=== PATIENT | male | born 1955 | race Two or more races ===

== ENCOUNTER 2020-06-28 05:48 | Inpatient (IN) | payer SELFPAY ==
[~2020-06-28] VITALS: Ht 175.3 cm; Wt 78.9 kg
[2020-06-28] VITALS (12 sets, daily range): BP systolic 115–133; BP diastolic 66–92
[~2020-06-28 05:48] MED LIST: CANDESARTAN CIL16 MG PO
[2020-06-28] MEDS ORDERED: ceFAZolin sod 1 GM in NS 55 ML IVPB ONE (07:00)
[2020-06-28] MEDS ORDERED: Rocuronium Bromide 50mg/5ml Inj IV ONE (07:10)
[2020-06-28] MEDS ORDERED: ProvayBlue 5mg/ml 10ml amp INJ ONE (07:15)
[2020-06-28] MEDS ORDERED: Bupivacaine 0.5% Inj 30 ml vial INJ ONE (07:17)
[2020-06-28] MEDS ORDERED: Lidocaine 1% MPF 10mg/ml 5ml ONE (07:21)
[2020-06-28] MEDS ORDERED: fentaNYL 100 mcg/2 mL IV ONE ×2 (07:22→10:03)
--- NOTE | 2020-06-28 07:24 | Anethesia Preoperative Eval ---
Anesthesia Pre-op PMH/ROS General Date of Evaluation: Jun 28, 2020 Time of Evaluation: 07:36 Anesthesiologist: Haylee ASA Score: ASA 3 Mallampati Score Class I : Soft palate, uvula, fauces, pillars visible Class II: Soft palate, uvula, fauces visible Class III: Soft palate, base of uvula visible Class IV: Only hard plate visible Mallampati Classification: Class II Surgeon: Vin Diagnosis: Prostate CA Surgical Procedure: Laparoscopic Prostatectomy Anesthesia History: none Family History: no anesthesia problems Allergies: Coded Allergies: No Known Allergies (Unverified , 06/28/20) Medications: see eMAR Patient NPO?: Yes Past Medical History Cardiovascular: Reports: HTN Gastrointestinal/Genitourinary: Reports: other - Prostate CA Neurologic/Psychiatric: Reports: depression/anxiety PSxH Narrative: Appendectomy Anesthesia Pre-op Phys. Exam Physician Exam Last Vital Signs Date Time Temp Pulse Resp B/P (MAP) Pulse Ox O2 Delivery O2 Flow Rate FiO2 06/28/20 06:37 97.3 102 20 131/92 (105) 98 06/28/20 06:27 Room Air Constitutional: NAD Neurologic: CN 2-12 intact Cardiovascular: RRR Respiratory: CTA Gastrointestinal: S/NT/ND Airway Exam Mallampati Score: Class II MO: full ROM: limited Teeth: missing, intact Anesthesia Pre-op A/P Risk Assessment & Plan Assessment: ASA 3 Plan: GA, SED, GlideScope Status Change Before Surgery: No Pre-Antibiotics Dru Gram Ancef IV Given Within 1 Hr of Incision: Yes Time Given: 08:01 Christiano Leach MD Jun 28, 2020 07:24
[2020-06-28] MEDS ORDERED: Midazolam 2mg/2ml Inj IVP PRN (07:30)
[2020-06-28] MEDS ORDERED: HYDROcodone/Acetamin 7.5/325 tab ORAL PRN (07:30)
[2020-06-28] MEDS ORDERED: Sterile Water Irrig 1000ml IRRIG ONE (07:30)
[2020-06-28] MEDS ORDERED: LORazepam Inj 2mg/ml 1ml IV PRN (07:30)
[2020-06-28] MEDS ORDERED: oxyCODONE HCL/Acetaminophen 5/325mg ORAL PRN (07:30)
[2020-06-28] MEDS ORDERED: HYDROcodone/Acetamin 5/325 tab ORAL PRN ×2 (07:30→10:30)
[2020-06-28] MEDS ORDERED: NS Irrig 1000ml ONE (07:30)
[2020-06-28] MEDS ORDERED: fentaNYL 100 mcg/2 mL IV PRN (07:30)
[2020-06-28] MEDS ORDERED: Hydromorphone 0.5mg/0.5ml inj IVP PRN (07:30)
[2020-06-28] MEDS ORDERED: Metoclopramide 10mg/2ml Inj IVP PRN (07:30)
[2020-06-28] MEDS ORDERED: LR 1000ml ONE (07:30)
[2020-06-28] MEDS ORDERED: DiphenhydrAMINE 50mg/ml Inj IVP PRN (07:30)
[2020-06-28] MEDS ORDERED: Atropine Sulfate 0.4mg/ml inj IVP PRN (07:30)
[2020-06-28] MEDS ORDERED: Ketorolac 30mg Inj IV PRN ×2 (07:30)
[2020-06-28] MEDS ORDERED: Meperidine 25mg/1ml Inj (FOR RIGORS ONLY) IV PRN (07:30)
[2020-06-28] MEDS ORDERED: LR 1000ml 1,000 ML IVLG SCH (07:30)
[2020-06-28] MEDS ORDERED: Acetaminophen (Non formulary) 100 ML IV ONE (07:30)
[2020-06-28] MEDS ORDERED: Labetalol 5mg/ml 20ml vial IV PRN (07:30)
--- NOTE | 2020-06-28 07:34 | Immediate Post-Op Evaluation ---
Immediate Post-Op Evalulation Immediate Post-Op Evalulation Procedure: Laparoscopic Prostatectomy Date of Evaluation: Jun 28, 2020 Time of Evaluation: 10:58 IV Fluids: 3000 LR Blood Products: 0 Estimated Blood Loss: 75 Urinary Output: 200 Blood Pressure Systolic: 118 Blood Pressure Diastolic: 66 Pulse Rate: 89 Respiratory Rate: 16 O2 Sat by Pulse Oximetry: 100 Temperature (Fahrenheit): 98 Pain Score (1-10): 2 Nausea: No Vomiting: No Complications 0 Patient Status: awake, reacts, patent, extubated, none Hydration Status: adequate Dru Gram Ancef IV Given Within 1 Hr of Incision: Yes Time Given: 08:01 Christiano Leach MD Jun 28, 2020 07:34
--- NOTE | 2020-06-28 08:13 | Pre-Procedure Note/Attestation ---
Pre-Procedure Note/Attestation Complete Prior to Procedure Planned Procedure: not applicable Procedure Narrative: Laparoscopic radical prostatectomy Indications for Procedure Pre-Operative Diagnosis: prostate cancer Attestation I attest that I discussed the nature of the procedure; its benefits; risks and complications; and alternatives (and the risks and benefits of such alternatives), prior to the procedure, with the patient (or the patient's legal technical account representative). I attest that, if there was a reasonable possibility of needing a blood transfusion, the patient (or the patient's legal technical account representative) was given the [facility] standardized written summary, pursuant to the Farhad Holli Blood Safety Act ([place] Health and Safety Code # 1645, as amended). I attest that I re-evaluated the patient just prior to the surgery and that there has been no change in the patient's H&P, except as documented below: Colt Banuelos MD Jun 28, 2020 08:13
[2020-06-28] MEDS ORDERED: Glycopyrrolate 0.2mg/ml 1ml Vial ONE (08:27)
[2020-06-28] MEDS ORDERED: Ketorolac 30mg Inj ONE (10:04)
--- NOTE | 2020-06-28 10:28 | Brief Operative Note ---
Immediate Post Operative Note Operative Note Pre-op Diagnosis: prostate cancer Procedure: Laparoscopic radical prostatectomy Post-op Diagnosis: same Post-op Diagnosis: same as pre-op Surgeon: Reggie Banuelos Anesthesia: general Specimen: yes Complications: none Condition: stable Fluids: 500 Estimated Blood Loss: minimal Implant(s) used?: No Colt Banuelos MD Jun 28, 2020 10:28
[2020-06-28] MEDS ORDERED: HYDROmorphone 1mg/ml Carpuject IVP PRN (10:30)
[2020-06-28] MEDS ORDERED: Ketorolac 30mg Inj IM PRN (10:30)
[2020-06-28 11:25] LABS: HEMATOCRIT 43.7 % (42.0-52.0); MEAN CORPUSCULAR VOLUME 88 FL (80-99); PLATELET COUNT 211 K/UL (150-450); RED BLOOD COUNT 4.96 M/UL (4.70-6.10); RED CELL DISTRIBUTION WIDTH 12.4 % (11.6-14.8); WHITE BLOOD COUNT 13.4 K/UL (4.8-10.8)
[2020-06-28 11:45] LABS: CALCIUM 8.6 MG/DL (8.5-10.1); CREATININE 1.5 MG/DL (0.55-1.30); POTASSIUM 4.7 MMOL/L (3.5-5.1)
--- NOTE | 2020-06-28 14:45 | Operative Note - Dictated ---
DATE OF OPERATION: 06/28/2020 PREOPERATIVE DIAGNOSIS: Prostate cancer. POSTOPERATIVE DIAGNOSIS: Prostate cancer. OPERATION: Laparoscopic radical retropubic prostatectomy. HIGH SCHOOL LIBRARIAN: Colt Banuelos MD MBA INTERNSHIP: Jd Weston MD FINDINGS: Enlarged prostate. INDICATION FOR SURGERY: The patient was diagnosed with multifocal Mic 6 prostate cancer. He had several opinions, came to me for a second opinion and evaluation showed somewhat enlarged prostate with multifocal prostate cancer Treatment options were explained to him in great length including all potential complications, and he signed the consent. DESCRIPTION OF PROCEDURE: The patient was brought to the operating room, placed in the supine position, prepped and draped in standard fashion. Under general anesthesia, Veress needle was placed into the abdomen. Pneumoperitoneum was created to 15 mmHg. Five trocars, two 12 and three 5, were placed in standard position. Dissection was started by Dr. Weston who mobilized the bowel adhesions and exposure to the retrovesical space. Dissection was then made to open up the visceral peritoneum and both seminal vesicles and vas deferens were dissected free from the surrounding adhesions using electrocautery. Denonvilliers fascia was opened. The dissection was carried anteriorly bladder from the pubis. Regional vessels were carefully preserved. Endopelvic fascia was opened with Harmonic scalpel. Urethra was skeletonized with [id number] Vicryl suture. After that, the [id number] technique was used to separate the bladder from the prostate. Bladder neck was carefully preserved. The prostate was then removed preserving both neurovascular bundles. The anastomosis was created over 20-Bulgarian Boyd catheter with running 2-0 Monocryl sutures. Water-tight bladder irrigation was confirmed. No evidence of leakage. Estimated blood loss was 50 mL. Specimen was removed. The wound was closed in multiple layers, subcuticular closure for the skin. Sponge count, instrument count was correct. Colt Banuelos M.D. DR: Isma JOB#: [id number] CC:
[2020-06-28] MEDS: D5 1/2NS w/KCl 20mEq 1,000 ML IV SCH (14:58)
[2020-06-28] MEDS: ceFAZolin 2gm/50ml Premix 50 ML IV SCH (16:59)
[2020-06-28] MEDS: Docusate 100mg cap ORAL SCH (18:36)
[2020-06-29] VITALS: BP 118/77
[2020-06-29] MEDS: ceFAZolin 2gm/50ml Premix 50 ML IV SCH (00:14)
[2020-06-29] MEDS: D5 1/2NS w/KCl 20mEq 1,000 ML IV SCH (00:14)
[2020-06-29 04:00] VITALS: BP 127/84
[2020-06-29 06:17] LABS: BASOPHILS % (AUTO) 0.3 % (0.0-2.0); EOSINOPHILS % (AUTO) 0.1 % (0.0-3.0); HEMATOCRIT 36.4 % (42.0-52.0); HEMOGLOBIN 13.1 G/DL (14.2-18.0); LYMPHOCYTES % (AUTO) 26.4 % (20.0-45.0); MEAN CORPUSCULAR VOLUME 85 FL (80-99); MONOCYTES % (AUTO) 9.1 % (1.0-10.0); NEUTROPHILS % (AUTO) 64.1 % (45.0-75.0); PLATELET COUNT 202 K/UL (150-450); RED BLOOD COUNT 4.28 M/UL (4.70-6.10); RED CELL DISTRIBUTION WIDTH 13.1 % (11.6-14.8)
[2020-06-29 06:26] LABS: CALCIUM 8.2 MG/DL (8.5-10.1); CREATININE 1.4 MG/DL (0.55-1.30); POTASSIUM 4.3 MMOL/L (3.5-5.1)
[2020-06-29 08:22] VITALS: BP 129/75
[2020-06-29] MEDS: Docusate 100mg cap ORAL SCH (08:39)
[2020-06-29 12:00] VITALS: BP 146/80
[2020-06-29 13:16] VITALS: BP 128/76
--- NOTE | 2020-06-29 13:16 | 48 Hour Post Anesthesia Eval ---
Post Anesthesia Evaluation Procedure: Laparoscopic Prostatectomy Date of Evaluation: Jun 29, 2020 Time of Evaluation: 13:15 Blood Pressure Systolic: 128 0: 76 Pulse Rate: 68 Respiratory Rate: 20 Temperature (Fahrenheit): 97.6 O2 Sat by Pulse Oximetry: 98 Airway: patent Nausea: No Vomiting: No Pain Intensity: 3 Hydration Status: adequate Cardiopulmonary Status: stable Mental Status/LOC: patient returned to baseline Follow-up Care/Observations: n/a Post-Anesthesia Complications: none Follow-up care needed: ready to discharge Amarjit Fulton MD Jun 29, 2020 13:16
[2020-06-29] MEDS ORDERED: Tubing IV Secondary IV ONE (17:05)
--- NOTE | 2020-07-03 10:12 | Discharge Summary ---
Discharge Summary Hospital Course Date of Admission Jun 28, 2020 at 05:48 Date of Discharge Jun 29, 2020 at 17:06 Admitting Diagnosis prostate cancer Reason for Hospitalization: eelctive surgery KAREN Phillips is a 64 year old male who was admitted on Jun 28, 2020 at 05:48 for Prostate Cancer Procedures s/p 06/28/[address] Banuelos Laparoscopic radical retropubic prostatectomy. Hospital Course status post surgery course of recovery uneventful initially IV fluids s/p perioperative antibiotic laparoscopic incisions clean dry and intact pain management was addressed, pain was controlled remained hemodynamically stable urinary output was closely monitored, no hematuria, sufficient amount fall precautions maintained; safe for ambulation use of incentive spirometry was encouraged while in the bed tolerated diet , IV fluids discontinued stool softener added to existing medication regimen patient was stable for discharge discharge instructions provided patient was provided with leg bag, instruction provided for care at home patient follow up with surgeon in the office as advised FINAL DIAGNOSES Prostate cancer s/p Laparoscopic radical retropubic prostatectomy. Discharge Medications Continued Medications: Candesartan Cilexetil (Candesartan Cilexetil) 16 Mg Tablet 16 MG PO DAILY for as prescribed, TAB Discharge Condition Upon Discharge: stable Discharge Vital Signs Last Vital Signs Date Time Temp Pulse Resp B/P (MAP) Pulse Ox O2 Delivery O2 Flow Rate FiO2 06/29/20 13:16 68 20 98 06/29/20 12:00 98.2 146/80 (102) 06/29/20 09:00 Room Air 06/28/20 11:35 3 Discharge Disposition Patient was discharged home Discharge Instructions Discharge Instructions Special Instructions I have been assigned to complete a D/C Summary on this account. I was not involved in the patient management Jennifer Rios NP Jul 03, 2020 10:12
== END 2020-06-29 17:06 | disposition home or self-care (01) | DRG 708 ==
LOC: SDSOVERFLO 05:48 → 3E 12:00
PROC: 0VT04ZZ Resection of Prostate, Percutaneous Endoscopic Approach (ICD-10-PCS; principal; 2020-06-28 07:30)
DX: C61 Malignant neoplasm of prostate (principal); I10 Essential (primary) hypertension
CPT/HCPCS: 36415; 80048; 85007; 85025; 86850; 86900; 86901; 87081; 94003; 94150; J2180; J2405; U0002